=== PATIENT | male | born 1955 | race Caucasian/White ===

== ENCOUNTER → 2021-06-04 | Outpatient (CLI) | payer MEDICARE, OTHER ==
[~2021-06-04] MED LIST: ACIDOPHILUS LACT1 GM PO; CHANTIX0.5 MG PO; CLINORIL 200MG200 MG PO; COUMADIN 1MG TAB1 MG PO; COUMADIN 7.5MG7.5 MG PO; FLAGYL500 MG PO; HYDROCHLOROTHIA25 MG PO; HYDROCODON-ACE1 EAC4 PO; LEVAQUIN500 MG PO; LEVOTHYROXINE200 MC1 PO; SIMVASTATIN40 MG PO
== END ==
LOC: HEART 5 05-28 09:30
DX: R07.9 Chest pain, unspecified (principal); R06.00 Dyspnea, unspecified
CPT/HCPCS: 78452; A9502; J2785

== ENCOUNTER → 2021-09-07 | Outpatient (CLI) | payer MEDICARE, OTHER | LOC: HEART 5 08:30 | DX: R06.00 Dyspnea, unspecified (principal) | CPT/HCPCS: 93306 ==